=== PATIENT | female | born 1995 | race Two or more races ===

== ENCOUNTER 2017-06-29 11:34 | Emergency (ER) | payer OTHER ==
[2017-06-29 11:52] VITALS: BMI 21.2
--- NOTE | 2017-06-29 12:21 | PDOC ---
History of Present Illness - General History Source: Patient Exam Limitations: No Limitations - History of Present Illness Initial Comments: 06/29/17 13:03 The patient is a 22 year old female, G1 who is currently 9 week with no significant past medical history who presents to the emergency department with vomiting, fever, sore throat, and nauesa for about 2 days. The patient reports having similar episode of vomiting about 2-3 weeks ago upon first discovering she was . She reports at the time seeing her OBGYN who have her zofran with good relief of her symptoms and advised her that should her symptoms ever return to head to the ER. She notes her most recent episode of N/ V has persisted for about 1-2 days, having multiple episode of vomiting bringing up yellow bile (nonbloody). She notes in addition having complaints of mild throat soreness, and reports being in contact with her 's daughter who is presently sick. She denies recent dysuria, frequency, urgency or hematuria. She denies recent chest pain or shortness of breath. LMP was . Allergies: NKA Past surgical history: None reported. Social history: Nonsmoker. Denies EtOH use and recreational drug use. <Que Oshea - Last Filed: 06/29/17 13:03> <Juan Pablo Mays - Last Filed: 06/29/17 15:34> - General Chief Complaint: Nausea/Vomiting Stated Complaint: VOMITING (9 WKS ) Time Seen by Provider: 06/29/17 12:21 Past History <Que Oshea - Last Filed: 06/29/17 13:03> - Past Medical History COPD: No DVT: No - Surgical History Abdominal Surgery: Yes (umbilical hernia repair) - Immunization History Immunization Up to Date: Yes - Suicide/Smoking/Psychosocial Hx Smoking Status: No Smoking History: Never smoked Have you smoked in the past 12 months: No Number of Cigarettes Smoked Daily: 0 Information on smoking cessation initiated: No Hx Alcohol Use: No Drug/Substance Use Hx: No Substance Use Type: None <Juan Pablo Mays - Last Filed: 06/29/17 15:34> - Past Medical History Allergies/Adverse Reactions: Allergies Allergy/AdvReac Type Severity Reaction Status Date / Time No Known Allergies Allergy Verified 06/29/17 11:53 Home Medications: Ambulatory Orders Cephalexin Monohydrate [Keflex -] 500 mg PO BID #10 capsule 06/29/17 Doxylamine Succinate/Vit B6 [Ezekiel Rea 10-10 mg Tablet] 2 each PO HS #30 tablet. 06/29/17 Ondansetron HCl [Zofran] 4 mg SL PRN 06/29/17 Review of Systems - Review of Systems Able to Perform ROS?: Yes Comments:: 06/29/17 12:30 CONSTITUTIONAL: +fever, no chills, no fatigue EYES: No visual changes ENT: No ear pain, +sore throat CARDIOVASCULAR: No chest pain, no palpitations RESPIRATORY: No cough, no SOB GI: No abdominal pain, +nausea, +vomiting, no constipation, no diarrhea GENITOURINARY: No dysuria, no frequency, no hematuria MUSKULOSKELETAL: No backpain, no joint pain, no myalgias SKIN: No rash NEURO: No headache <Que Oshea - Last Filed: 06/29/17 13:03> *Physical Exam - Vital Signs Last Vital Signs Temp Pulse Resp BP Pulse Ox 98.2 F 84 15 127/80 99 06/29/17 11:49 06/29/17 11:49 06/29/17 11:49 06/29/17 11:49 06/29/17 11:49 - Physical Exam Comments: 06/29/17 13:03 CONSTITUTIONAL: Well-appearing; well-nourished; in no apparent distress HEAD: Normocephalic; atraumatic EYES: PERRL; EOM intact ENMT: External appears normal; normal oropharynx NECK: Supple; non-tender; no cervical lymphadenopathy CARD: Normal S1, S2; no murmurs, rubs, or gallops RESP: Normal chest excursion with respiration; breath sounds clear and equal bilaterally; no wheezes, rhonchi, or rales ABD: Soft, non-distended; non-tender; no palpable organomegaly, no palpable hernias EXT: Normal ROM in all four extremities; non-tender to palpation; distal pulses intact SKIN: Warm, dry, no rash NEURO: No focal neurological deficiencies. 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 Patient afebrile and hemodynamically stable. There is no evidence of oropharyngeal infection or abdominal pain on serial evaluation. CBC/CMP within normal limit. Urinalysis reveals 7 WBCs per high-power field. Rapid strep test is negative. Patient's received Pepcid, IV Zofran, D5NS with resolution of her symptoms. Will discharge with the diclegis, and Keflex for pyuria with outpatient follow-up. <Juan Pablo Mays - Last Filed: 06/29/17 15:34> *DC/Admit/Observation/Transfer - Attestations Scribe Attestion: 06/29/17 12:30 Documentation prepared by Que Oshea, acting as medical transcription for Juan Pablo Mays MD. <Que Oshea - Last Filed: 06/29/17 13:03> - Attestations Physician Attestion: 06/29/17 15:27 The documentation was prepared by the scribe under my direct supervision. I have reviewed the documentation which correctly represents the findings, medical decision-making and critical action taken by me. <Juan Pablo aMys - Last Filed: 06/29/17 15:34> Diagnosis at time of Disposition: Hyperemesis gravidarum, Asymptomatic bacteriuria antepartum - Discharge Dispostion Disposition: HOME Condition at time of disposition: Stable - Referrals Referrals: supervisor [employer], one week [Other] - Patient Instructions Printed Discharge Instructions: DI for Hyperemesis Gravidarum, DI for Urinary Tract Infection (UTI)
[2017-06-29] MEDS ORDERED: ONDANSETRON 4 MG/2 ML VIAL IVPUSH ONE (13:00)
[2017-06-29] MEDS ORDERED: FAMOTIDINE IV 20 MG/12 ML VIAL IVPUSH ONE (13:00)
[2017-06-29] MEDS ORDERED: DEXTROSE 5%-NORMAL SALINE 1,000 ML IV ONE (13:00)
[2017-06-29] MEDS ORDERED: ONDANSETRON 4 MG/2 ML VIAL ONE (13:07)
[2017-06-29] MEDS ORDERED: FAMOTIDINE 20 MG/50 ML IVPB 20 MG/50 ML MG IVPB ONE (13:08)
[2017-06-29 13:12] LABS: URINE APPEARANCE SLCLOUDY; URINE BILIRUBIN NEGATIVE (NEGATIVE); URINE BLOOD NEGATIVE (NEGATIVE); URINE COLOR YELLOW; URINE GLUCOSE (UA) NEGATIVE (NEGATIVE); URINE KETONE 1+ (NEGATIVE); URINE NITRITE NEGATIVE (NEGATIVE); URINE PROTEIN NEGATIVE (NEGATIVE); URINE UROBILINOGEN NEGATIVE mg/dL (0.2-1.0)
[2017-06-29 13:17] LABS: URINE LEUK ESTERASE 2+ (NEGATIVE)
[2017-06-29 13:18] LABS: EPI CELLS FEW /HPF (FEW); URINE MUCUS RARE
[2017-06-29 13:25] LABS: BASO % 0.5 % (0-2.0); EOS % 0.1 % (0-4.5); HEMOGLOBIN 12.6 GM/dL (10.7-15.3); LYMPH % 14.2 % (8-40); MCH 28.4 pg (25.7-33.7); MCHC 33.1 g/dl (32.0-36.0); MEAN PLT VOLUME 9.4 fl (7.5-11.1); MONO % 7.6 % (3.8-10.2); NEUT % 77.6 % (42.8-82.8); PLATELET COUNT 249 K/MM3 (134-434); RBC 4.42 M/mm3 (3.60-5.2); RDW 13.2 % (11.6-15.6); WHITE BLOOD COUNT 7.4 K/mm3 (4.0-10.0)
[2017-06-29 13:52] LABS: ALBUMIN 3.7 g/dl (3.4-5.0); ANION GAP 13 (8-16); BILIRUBIN,TOTAL 0.4 mg/dL (0.2-1.0); BLOOD UREA NITROGEN 7 mg/dL (7-18); CALCIUM 8.7 mg/dL (8.5-10.1); CHLORIDE 102 mmol/L (98-107); CO2 22 mmol/L (21-32); CREATININE 0.5 mg/dL (0.55-1.02); GLUCOSE,RANDOM 78 mg/dL (74-106); MAGNESIUM 2.1 mg/dL (1.8-2.4); POTASSIUM 4.1 mmol/L (3.5-5.1); SGOT/AST 14 U/L (15-37); SGPT/ALT 14 U/L (12-78); SODIUM 137 mmol/L (136-145); TOT PROT 7.4 g/dl (6.4-8.2)
[2017-06-29 13:53] LABS: ALK PHOS 44 U/L (45-117)
[2017-06-29 15:55] VITALS: BP 120/75; PULSE 85; TEMP 97.1
== END 2017-06-29 15:59 | disposition home or self-care (01) ==
LOC: JER 11:34
PROC: 3E033GC Introduction of Other Therapeutic Substance into Peripheral Vein, Percutaneous Approach (ICD-10-PCS; principal; 2017-06-29)
PROC: 3E0337Z Introduction of Electrolytic and Water Balance Substance into Peripheral Vein, Percutaneous Approach (ICD-10-PCS; 2017-06-29)
DX: O26.891 Other specified pregnancy related conditions, first trimester (principal); Z3A.09 9 weeks gestation of pregnancy; O21.0 Mild hyperemesis gravidarum; R82.71 Bacteriuria
CPT/HCPCS: 36415; 80053; 81003; 81015; 83735; 85025; 87070; 87086; 87430; 99283-25

== ENCOUNTER 2022-05-14 07:14 | Emergency (ER) | payer OTHER ==
[2022-05-14 08:03] VITALS: BMI 24.3
[2022-05-14] MEDS ORDERED: DIPHTH,PERTUSS(ACELL),TET 0.5 ML DISP.SYRIN IM ONE ×3 (08:20→08:37)
[2022-05-14] MEDS ORDERED: IBUPROFEN 600 MG TABLET (FP) PO ONE ×2 (08:21→08:29)
[2022-05-14 08:44] VITALS: BP 116/57; PULSE 83; RESP 18; TEMP 98.4
== END 2022-05-14 09:45 | disposition home or self-care (01) ==
LOC: JERFT 07:14 → JER 07:14 → JERFT 09:45
PROC: 3E0234Z Introduction of Serum, Toxoid and Vaccine into Muscle, Percutaneous Approach (ICD-10-PCS; principal; 2022-05-14)
DX: S50.811A Abrasion of right forearm, initial encounter (principal); S50.11XA Contusion of right forearm, initial encounter; M79.672 Pain in left foot; W17.89XA Other fall from one level to another, initial encounter
CPT/HCPCS: 73090-TC-RT-FY; 73630-TC-LT; 90471; 90715; 99284-25